=== PATIENT | male | born 1990 | race African-American/Black ===

== ENCOUNTER 2021-06-19 12:10 | Observation (INO) | payer OTHER, BC ==
[2021-06-19] MEDS ORDERED: SODIUM CHLORIDE 0.9% 500 ML INFUS.BAG IV ONE ×2 (12:46)
[2021-06-19 13:45] LABS: BASO % 0.4 % (0-2.0); EOS % 1.6 % (0-4.5); HEMATOCRIT 43.8 % (35.4-49); MCH 32.3 pg (25.7-33.7); MCHC 34.3 g/dl (32.0-35.9); MEAN CELL VOLUME 94.3 fl (80-96); MONO % 5.6 % (3.8-10.2); NEUT % 68.4 % (42.8-82.8); PLATELET COUNT 210 10^3/uL (134-434); RBC 4.64 M/mm3 (4.00-5.60); RDW 12.8 % (11.9-15.9); WHITE BLOOD COUNT 5.1 K/mm3 (4.0-10.0)
[2021-06-19 13:46] LABS: PH,URINE 5.5 (5.0-8.0); URINE APPEARANCE CLEAR; URINE BILIRUBIN NEGATIVE (NEGATIVE); URINE COLOR YELLOW; URINE GLUCOSE (UA) NEGATIVE (NEGATIVE); URINE KETONE TRACE (NEGATIVE); URINE LEUK ESTERASE NEGATIVE (NEGATIVE); URINE NITRITE NEGATIVE (NEGATIVE); URINE PROTEIN NEGATIVE (NEGATIVE)
[2021-06-19 14:03] LABS: CHLORIDE 107 mmol/L (98-107); SODIUM 140 mmol/L (136-145)
[2021-06-19 14:06] LABS: ALBUMIN 4.4 g/dl (3.4-5.0); BLOOD UREA NITROGEN 11.7 mg/dL (7-18); GLUCOSE,RANDOM 103 mg/dL (74-106)
[2021-06-19 14:09] LABS: CREATININE 1.4 mg/dL (0.55-1.3); SGOT/AST 414 U/L (15-37)
[2021-06-19 14:11] LABS: BILIRUBIN,TOTAL 0.9 mg/dL (0.2-1); TOT PROT 7.9 g/dl (6.4-8.2)
[2021-06-19 14:12] LABS: ALK PHOS 67 U/L (45-117)
[2021-06-19 14:45] LABS: ANION GAP 4 MMOL/L (8-16); CO2 29 mmol/L (21-32); SGPT/ALT 124 U/L (13-61)
[2021-06-19] MEDS: LACTATED RINGERS SOLUTION 1,000 ML/1,000 ML INFUS.BAG IV SCH (16:43)
[2021-06-19 23:56] VITALS: BMI 34.1
[2021-06-20] MEDS ORDERED: PANTOPRAZOLE 40 MG TABLET PO ONE (05:23)
[2021-06-20] MEDS ORDERED: ACETAMINOPHEN 325 MG TABLET (FP) PO PRN (07:26)
[2021-06-20] MEDS: LACTATED RINGERS SOLUTION 1,000 ML/1,000 ML INFUS.BAG IV SCH ×2 (08:40→13:32)
[2021-06-20 10:11] LABS: HEMATOCRIT 38.7 % (35.4-49); HEMOGLOBIN 13.5 GM/dL (11.7-16.9); MCH 32.7 pg (25.7-33.7); MCHC 34.8 g/dl (32.0-35.9); MEAN PLT VOLUME 8.1 fl (7.5-11.1); RBC 4.11 M/mm3 (4.00-5.60); RDW 12.9 % (11.9-15.9); WHITE BLOOD COUNT 4.5 K/mm3 (4.0-10.0)
[2021-06-20 10:19] LABS: PLATELET COUNT 194 10^3/uL (134-434)
[2021-06-20 10:30] LABS: ALBUMIN 3.7 g/dl (3.4-5.0); BLOOD UREA NITROGEN 10.3 mg/dL (7-18); CALCIUM 9.1 mg/dL (8.5-10.1)
[2021-06-20 10:32] LABS: BILIRUBIN,TOTAL 1.3 mg/dL (0.2-1); TOT PROT 6.7 g/dl (6.4-8.2)
[2021-06-20 10:34] LABS: CREATININE 1.1 mg/dL (0.55-1.3); PHOSPHOROUS 3.9 mg/dL (2.5-4.9)
[2021-06-20 18:09] LABS: CALCIUM 9.2 mg/dL (8.5-10.1)
[2021-06-20 18:10] LABS: ALBUMIN 3.7 g/dl (3.4-5.0); BLOOD UREA NITROGEN 10.6 mg/dL (7-18)
[2021-06-20 18:14] LABS: TOT PROT 6.4 g/dl (6.4-8.2)
[2021-06-20 18:15] LABS: BILIRUBIN,TOTAL 0.9 mg/dL (0.2-1)
[2021-06-20 18:47] VITALS: BP 131/63; PULSE 58; TEMP 97.7
== END 2021-06-20 19:05 | disposition home or self-care (01) ==
LOC: JER 12:10 → JERBED 16:07 → J5S 23:47
PROVIDERS: ADMIT Internal Medicine; ATTEND Nurse Practitioner Family
PROC: 3E0337Z Introduction of Electrolytic and Water Balance Substance into Peripheral Vein, Percutaneous Approach (ICD-10-PCS; principal; 2021-06-19)
DX: M62.82 Rhabdomyolysis (principal); N17.9 Acute kidney failure, unspecified; E66.9 Obesity, unspecified; Z68.34 Body mass index [BMI] 34.0-34.9, adult; X58.XXXA Exposure to other specified factors, initial encounter; Y93.89 Activity, other specified; Y92.89 Other specified places as the place of occurrence of the external cause; Y99.0 Civilian activity done for income or pay
CPT/HCPCS: 36415; 71046-TC-FY; 80053; 81003; 82550; 82553; 83735; 83874; 84100; 85025; 85027; 87086; 93005; 93010; 96360; 96361; 99285-25; C9803; G0378; U0003; U0005

== ENCOUNTER 2021-06-22 20:52 | Emergency (ER) | payer OTHER, BC ==
[2021-06-22 21:01] VITALS: BP 130/73; PULSE 57; TEMP 98.6; BMI 33.3
[2021-06-22] MEDS ORDERED: SODIUM CHLORIDE 0.9% 500 ML INFUS.BAG IV ONE (22:11)
[2021-06-22 22:40] LABS: BASO % 0.6 % (0-2.0); HEMOGLOBIN 14.5 GM/dL (11.7-16.9); LYMPH % 35.5 % (8-40); MCH 32.4 pg (25.7-33.7); MCHC 34.5 g/dl (32.0-35.9); MEAN CELL VOLUME 93.9 fl (80-96); MONO % 7.3 % (3.8-10.2); NEUT % 51.6 % (42.8-82.8); PLATELET COUNT 215 10^3/uL (134-434); RBC 4.48 M/mm3 (4.00-5.60); RDW 12.7 % (11.9-15.9); WHITE BLOOD COUNT 5.2 K/mm3 (4.0-10.0)
[2021-06-22] MEDS ORDERED: ACETAMINOPHEN 325 MG TABLET (FP) PO ONE (23:12)
[2021-06-22 23:21] LABS: BLOOD UREA NITROGEN 20.4 mg/dL (7-18); CALCIUM 8.8 mg/dL (8.5-10.1)
[2021-06-22 23:24] LABS: CREATININE 1.2 mg/dL (0.55-1.3)
[2021-06-23] MEDS ORDERED: ACETAMINOPHEN 325 MG TABLET (FP) ONE (00:20)
== END 2021-06-23 00:52 | disposition home or self-care (01) ==
LOC: JER 20:52
DX: M79.604 Pain in right leg (principal); M79.605 Pain in left leg
CPT/HCPCS: 36415; 80048; 82550; 82553; 85025; 99284-25

== ENCOUNTER 2023-04-07 10:19 | Emergency (ER) | payer OTHER ==
[2023-04-07 12:27] VITALS: BP 124/70; PULSE 68; RESP 18; TEMP 98; BMI 35.9
[2023-04-07 13:23] LABS: ARTERIAL BLD GAS O2 SATURATION 96.8 % (95-98); ARTERIAL BLOOD GAS BASE EXCESS -2.8 mmol/L (-2-2); ARTERIAL BLOOD GAS PO2 90.3 mmHg (80-100); ARTERIAL BLOOD GAS pH 7.376 (7.350-7.450)
== END 2023-04-07 14:10 | disposition home or self-care (01) ==
LOC: JERFT 10:19
DX: M25.562 Pain in left knee (principal); J02.9 Acute pharyngitis, unspecified
CPT/HCPCS: 36600; 73562-TC-LT-FY; 82375; 82803; 87651; 99284-25

== ENCOUNTER 2023-07-03 17:09 | Emergency (ER) | payer OTHER ==
[2023-07-03 17:15] VITALS: BP 137/87; PULSE 74; RESP 20; TEMP 98.3; BMI 36.6
[2023-07-03] MEDS ORDERED: METHOCARBAMOL 500 MG TABLET ONE (18:07)
[2023-07-03] MEDS ORDERED: KETOROLAC TROMETHAMINE 30 MG/1 ML VIAL ONE (18:07)
[2023-07-03] MEDS ORDERED: ACETAMINOPHEN 500 MG TABLET (FP) ONE (18:07)
[2023-07-03] MEDS: KETOROLAC TROMETHAMINE 30 MG/1 ML VIAL IM ONE (18:15)
[2023-07-03] MEDS: METHOCARBAMOL 500 MG TABLET PO ONE (18:15)
[2023-07-03] MEDS: ACETAMINOPHEN 500 MG TABLET (FP) PO ONE (18:16)
== END 2023-07-03 18:45 | disposition home or self-care (01) ==
LOC: JERFT 17:09
PROC: 3E0233Z Introduction of Anti-inflammatory into Muscle, Percutaneous Approach (ICD-10-PCS; principal; 2023-07-03)
DX: S39.012A Strain of muscle, fascia and tendon of lower back, initial encounter (principal); M54.50 Low back pain, unspecified; X58.XXXA Exposure to other specified factors, initial encounter
CPT/HCPCS: 99284-25

== ENCOUNTER 2023-10-01 08:50 | Emergency (ER) | payer BC, OTHER ==
[2023-10-01 09:03] VITALS: BP 126/64; PULSE 67; RESP 18; TEMP 99; BMI 34.0
[2023-10-01] MEDS ORDERED: IBUPROFEN 600 MG TABLET (FP) PO ONE (09:50)
[2023-10-01] MEDS: IBUPROFEN 400 MG TABLET (FP) PO ONE (09:51)
[2023-10-01] MEDS: LACTATED RINGERS SOLUTION 1000 ML INFUS.BAG IV ONE (10:19)
[2023-10-01] MEDS ORDERED: ACETAMINOPHEN INJECTION 100 ML IVPB ONE (11:25)
[2023-10-01] MEDS: ACETAMINOPHEN 1000 MG/100 ML BAG IVPB ONE (11:27)
[2023-10-01] MEDS ORDERED: AMOX TR/POT CLAV 875MG/125MG TABLETS (FP) ONE (12:18)
[2023-10-01] MEDS: AMOX TR/POT CLAV 875MG/125MG TABLETS (FP) PO ONE (12:23)
== END 2023-10-01 12:26 | disposition home or self-care (01) ==
LOC: JER 08:50
PROC: 3E033NZ Introduction of Analgesics, Hypnotics, Sedatives into Peripheral Vein, Percutaneous Approach (ICD-10-PCS; principal; 2023-10-01)
DX: J18.9 Pneumonia, unspecified organism (principal); R50.9 Fever, unspecified; R53.81 Other malaise; R05.9 Cough, unspecified; R07.89 Other chest pain; R51.9 Headache, unspecified; R10.9 Unspecified abdominal pain; R11.10 Vomiting, unspecified; Z20.822 Contact with and (suspected) exposure to COVID-19
CPT/HCPCS: 0241U-QW; 71046-TC-FY; 93005; 93010; 99285-25; J0131

== ENCOUNTER 2023-10-01 22:50 | Inpatient (IN) | payer BC ==
[2023-10-01] MEDS ORDERED: AZITHROMYCIN 500 MG TABLET ONE (23:26)
[2023-10-01] MEDS ORDERED: CEFTRIAXONE 1 GM/50 ML BAG ONE (23:27)
[2023-10-02] MEDS: CEFTRIAXONE 1,000 MG in DEXTROSE 5%-WATER - 50 ML IVPB ONE (00:26)
[2023-10-02] MEDS: SODIUM CHLORIDE 0.9% 500 ML INFUS.BAG IV ONE ×2 (00:26→02:16)
[2023-10-02] MEDS: AZITHROMYCIN 500 MG TABLET PO ONE (00:26)
[2023-10-02 00:35] LABS: BASO % 0.3 % (0-2.0); EOS % 0.8 % (0-4.5); HEMATOCRIT 41.9 % (35.4-49); LYMPH % 6.6 % (8-40); MCH 31.1 pg (25.7-33.7); MCHC 33.5 g/dl (32.0-35.9); MEAN CELL VOLUME 92.8 fl (80-96); MEAN PLT VOLUME 7.6 fl (7.5-11.1); MONO % 6.4 % (3.8-10.2); NEUT % 85.9 % (42.8-82.8); PLATELET COUNT 260 10^3/uL (134-434); RBC 4.52 M/mm3 (4.00-5.60); RDW 13.7 % (11.9-15.9); WHITE BLOOD COUNT 7.7 K/mm3 (4.0-10.0)
[2023-10-02 00:54] LABS: POTASSIUM 4.8 mmol/L (3.5-5.1)
[2023-10-02 00:57] LABS: ALBUMIN 3.3 g/dl (3.4-5.0); CALCIUM 8.8 mg/dL (8.5-10.1)
[2023-10-02 01:00] LABS: CREATININE 1.3 mg/dL (0.55-1.3)
[2023-10-02 01:02] LABS: BILIRUBIN,TOTAL 0.4 mg/dL (0.2-1)
[2023-10-02 01:04] LABS: INR 1.15 (0.83-1.09); PROTHROMBIN TIME (PATIENT) 13.2 SEC (9.7-13.0)
[2023-10-02 01:07] LABS: ACTIVATED PTT 30.1 SECONDS (25.2-36.5)
[2023-10-02] MEDS ORDERED: ACETAMINOPHEN INJECTION 100 ML IVPB ONE (01:12)
[2023-10-02] MEDS: ACETAMINOPHEN 1000 MG/100 ML BAG IVPB ONE (01:16)
[2023-10-02 01:40] LABS: VENOUS BASE EXCESS -3.9 mmol/L (-2-2); VENOUS O2 SATURATION 80.2 % (70-80); VENOUS PCO2 39.5 mmHg (38-52); VENOUS PH 7.35 (7.310-7.410)
[2023-10-02] MEDS ORDERED: KETOROLAC TROMETHAMINE 10 MG TABLET PO PRN (02:50)
[2023-10-02] MEDS: METHOCARBAMOL 750 MG TABLET PO SCH (03:22)
[2023-10-02] MEDS: traMADol HCL 50 MG TABLET PO PRN (04:44)
[2023-10-02 05:25] VITALS: BMI 36.6
[2023-10-02 09:18] LABS: URINE APPEARANCE CLEAR; URINE BILIRUBIN NEGATIVE (NEGATIVE); URINE COLOR YELLOW; URINE GLUCOSE (UA) NEGATIVE (NEGATIVE); URINE KETONE NEGATIVE (NEGATIVE); URINE LEUK ESTERASE NEGATIVE (NEGATIVE); URINE NITRITE NEGATIVE (NEGATIVE); URINE PROTEIN NEGATIVE (NEGATIVE)
[2023-10-02] MEDS: CEFTRIAXONE 1 GM in DEXTROSE 5%-WATER - 50 ML IVPB SCH (09:22)
[2023-10-02 09:24] LABS: HEMATOCRIT 40.6 % (35.4-49); HEMOGLOBIN 13.8 GM/dL (11.7-16.9); MCH 31.6 pg (25.7-33.7); MEAN PLT VOLUME 7.8 fl (7.5-11.1); PLATELET COUNT 256 10^3/uL (134-434); RBC 4.36 M/mm3 (4.00-5.60); RDW 13.6 % (11.9-15.9); WHITE BLOOD COUNT 7.6 K/mm3 (4.0-10.0)
[2023-10-02 09:26] LABS: POTASSIUM 5.1 mmol/L (3.5-5.1)
[2023-10-02] MEDS: ENOXAPARIN NA (PORCINE) 40 MG/0.4 ML DISP.SYRIN SQ SCH (09:29)
[2023-10-02] MEDS: LIDOCAINE 4% PATCH TP SCH (09:29)
[2023-10-02 09:32] LABS: ALBUMIN 3.1 g/dl (3.4-5.0); CALCIUM 9.1 mg/dL (8.5-10.1); MAGNESIUM 2.5 mg/dL (1.8-2.4)
[2023-10-02 09:35] LABS: CREATININE 1.2 mg/dL (0.55-1.3); PHOSPHOROUS 4.9 mg/dL (2.5-4.9)
[2023-10-02 09:37] LABS: BILIRUBIN,TOTAL 0.4 mg/dL (0.2-1); TOT PROT 6.6 g/dl (6.4-8.2)
[2023-10-02] MEDS: AZITHROMYCIN IVPB 500 MG/250 ML BAG IVPB SCH (09:55)
[2023-10-02] MEDS: LIDOCAINE PATCH REMOVAL MC SCH (21:40)
[2023-10-02] MEDS: METHOCARBAMOL 500 MG TABLET PO PRN (21:41)
[2023-10-03] MEDS: MELATONIN 5 MG TABLETS PO ONE (01:45)
[2023-10-03] MEDS: BENZOCAINE/MENTH/CETYLPYRD CL 1 EACH LOZENGE MM PRN (01:45)
[2023-10-03 07:18] VITALS: RESP 18
[2023-10-03] MEDS: guaiFENesin 200 MG/10 ML 10 ML UNIT-DOSE CUPS PO PRN (10:47)
[2023-10-04 12:49] VITALS: BP 132/81; PULSE 64; TEMP 97.9
== END 2023-10-04 13:00 | disposition home or self-care (01) | DRG 193 ==
LOC: JER 22:50 → JERBED 10-02 01:14 → J8W 10-02 04:23
PROVIDERS: ADMIT Internal Medicine; ATTEND Nurse Practitioner Acute Care
DX: J18.9 Pneumonia, unspecified organism (principal); J96.01 Acute respiratory failure with hypoxia; R04.2 Hemoptysis; R91.8 Other nonspecific abnormal finding of lung field; E66.9 Obesity, unspecified; Z68.36 Body mass index [BMI] 36.0-36.9, adult; M54.9 Dorsalgia, unspecified
CPT/HCPCS: 0241U-QW; 36415; 71260-TC; 80053; 81003; 82803; 83605; 83735; 84100; 84484; 85025; 85027; 85610; 85730; 87040; 87899; 94761; 99285-25; G0378; J0131; Q9967

== ENCOUNTER 2024-01-11 13:41 | Emergency (ER) | payer BC, OTHER ==
[2024-01-11 13:48] VITALS: BP 122/68; PULSE 76; RESP 17; TEMP 98.6; BMI 33.3
[2024-01-11] MEDS ORDERED: LIDOCAINE 4% PATCH TP ONE (14:30)
[2024-01-11] MEDS ORDERED: KETOROLAC TROMETHAMINE 30 MG/1 ML VIAL ONE (14:30)
[2024-01-11] MEDS ORDERED: METHOCARBAMOL 500 MG TABLET ONE (14:30)
[2024-01-11] MEDS ORDERED: ACETAMINOPHEN 500 MG TABLET (FP) ONE (14:30)
[2024-01-11] MEDS: LIDOCAINE 4% PATCH TP ONE (14:39)
[2024-01-11] MEDS: METHOCARBAMOL 500 MG TABLET PO ONE (14:39)
[2024-01-11] MEDS: KETOROLAC TROMETHAMINE 30 MG/1 ML VIAL IM ONE (14:40)
[2024-01-11] MEDS: ACETAMINOPHEN 500 MG TABLET (FP) PO ONE (14:40)
== END 2024-01-11 15:10 | disposition home or self-care (01) ==
LOC: JERFT 13:41
PROC: 3E0133Z Introduction of Anti-inflammatory into Subcutaneous Tissue, Percutaneous Approach (ICD-10-PCS; principal; 2024-01-11)
DX: S39.012A Strain of muscle, fascia and tendon of lower back, initial encounter (principal); X50.1XXA Overexertion from prolonged static or awkward postures, initial encounter; Y99.0 Civilian activity done for income or pay
CPT/HCPCS: 99284-25